=== PATIENT | female | born 1945 | race Caucasian/White ===

== ENCOUNTER 2024-03-01 14:49 | Outpatient (RCR) | payer MEDICARE, BC | END 2024-03-03 | disposition home or self-care (01) | LOC: PT | DX: R26.89 Other abnormalities of gait and mobility (principal); R53.1 Weakness ==

== ENCOUNTER 2024-04-06 08:34 | Outpatient (RCR) | payer MEDICARE, BC | END 2024-05-03 | disposition home or self-care (01) | LOC: PT | DX: R26.89 Other abnormalities of gait and mobility (principal); R53.1 Weakness ==

== ENCOUNTER → 2024-05-17 | Outpatient (CLI) | payer MEDICARE, BC | LOC: LAB 13:36 | DX: N39.0 Urinary tract infection, site not specified (principal) ==